=== PATIENT | male | born 1960 | race Caucasian/White ===

== ENCOUNTER → 2020-05-05 13:40 | Outpatient (CLI) | payer OTHER, SELFPAY ==
--- NOTE | 2020-05-05 13:55 | RAD_ITS ---
HISTORY: pt states possible kidney stone, pain off and on ADDITIONAL HISTORY: None. COMPARISON: None Technique: Supine abdominal radiograph(s) Number of images including paperwork: 2 FINDINGS: FREE AIR: None detected. BOWEL GAS PATTERN: Nonobstructive. Moderate to large amount of colonic stool. CALCIFICATIONS: Right lower pole renal calculi are noted measuring approximately 14 mm and 4 mm in greatest dimension. No definite left renal calculi. Calcifications in the pelvis are suggestive of phleboliths although distal ureteral calculus not excluded. ORGANS: No evidence of organomegaly. SOFT TISSUES: Unremarkable. BONES: No acute skeletal findings. RAD/Abdomen Single View IMPRESSION: Right renal calculi. Pelvic calcifications suggestive of phleboliths. Distal ureteral calculus not excluded. at 0037 Reported and signed by: Parvin Ivy MD Electronically Signed: Parvin Ivy MD at 0:37 EDT Tel , Service support ,
== END ==
PROVIDERS: PCP Family Medicine; Referring Provider Urology; Visit Provider Urology
DX: N20.0 Calculus of kidney (principal)
CPT/HCPCS: 74018

== ENCOUNTER 2020-05-18 08:23 | Day surgery (SDC) | payer OTHER, SELFPAY ==
[2020-05-18] VITALS (8 sets, daily range): BP systolic 112–142; BP diastolic 67–79; PULSE 46–91; RESP 15–18; TEMP 36.1–36.3; O2SAT 97–100; BMI 27.3
--- NOTE | 2020-05-18 08:30 | RAD_ITS ---
STUDY: X-RAY - ABDOMEN/PELVIS REASON FOR EXAM: Male, 60 years old. PRE OP, RIGHT SIDE PAIN TECHNIQUE: Single AP view of the abdomen / pelvis. COMPARISON: Comparison is made with prior study dated May 05, 2020. FINDINGS: Normal visualized lung bases. There is a moderate amount of colonic fecal material. There is an 8 mm x 11.5 mm calculus in the region of the right ureteral pelvic junction. 2 mm calculus in the midpole calyx of the right kidney Normal soft tissue structures. Normal visualized osseous structures. RAD/Abdomen Single View IMPRESSION: 11.5 mm x 8 mm calculus at the right ureteropelvic junction. 2 mm calculus in the midpole calyx of the right kidney. Electronically Signed: Jamin Roberson, at 9:46 EDT , Service support ,
[2020-05-18 09:21] LABS: Bedside Glucose 200 mg/dL (70-110)
[2020-05-18] MEDS: Lactated Ringers 1,000 ML 100 ML IV ×2 (09:22→13:45)
[2020-05-18] MEDS: Ciprofloxacin 400 MG/200 ML BAG 200 MG IV (11:19)
--- NOTE | 2020-05-18 14:07 | PCM.HP.STD ---
History of Present Illness Date of Admission: 05/18/20 Chief Complaint: Right ureteral calculi The patient is a 60 year old male with a right proximal ureteral stone, plan to proceed with right shockwave lithotripsy and stent placement Past Medical History Allergies cephalexin Allergy (Verified 05/18/20 09:11) Hives Penicillins Allergy (Verified 05/18/20 09:11) Hives Home Medications: Ambulatory Orders Medication Instructions Recorded Betaxolol 0.25% [Betoptic] 1 drp EACH EYE BID 05/17/20 Cholecalciferol (VIT D3) [Vitamin 1,000 unit PO DAILY 05/17/20 D] Wilma 500 mg PO DAILY 05/17/20 Ginseng 500 mg PO DAILY 05/17/20 Insulin Detemir [Levemir (BKC)] 10 units SUBCUT DAILY 05/17/20 Insulin Detemir [Levemir (BKC)] 14 units SUBCUT QHS 05/17/20 Insulin Lispro [Humalog Kwikpen] 5 - 10 unit SQ TID 05/17/20 Magnesium 250 mg PO DAILY 05/17/20 metFORMIN HCl [Glucophage] 1,000 mg PO BIDCM 05/17/20 Surgical History: no surgical history Smoking Status: Never smoker Tobacco Use: Non-smoker Review of Systems Constitutional: Denies: Chills, Fever, Weight Change HEENT: Denies: Head Aches, Sinus Congestion, Sinus Drainage Cardiovascular: Denies: Chest Pain, Palpitations Respiratory: Denies: Cough, Shortness of breath at rest, Sputum production Gastrointestinal: Denies: Abdominal Pain, Nausea, Vomiting Genitourinary: Denies: Dysuria Musculoskeletal: Denies: Joint Pain, Joint Tenderness Skin: Denies: Rash, Wounds Neurological: Denies: Numbness, Tingling, Focal weakness Psychiatric: Denies: Anxiety, Depression, Homicidal Ideations, Suicidal Ideations Hematologic/ Lymphatic: Denies: Easy Bruising, Easy Bleeding VTE Information - Inpt Only VTE Present on Admission: No - Physical Exam Vitals/I&O's: Vital Signs Temp Pulse Resp BP Pulse Ox 97.4 F L 87 15 142/79 H 99 05/18/20 09:12 05/18/20 09:12 05/18/20 09:12 05/18/20 09:12 05/18/20 09:12 Oxygen Delivery Method Room Air Weight: 87.8 kg Body Mass Index (BMI) 27.3 Intake and Output for Last 24 Hours 05/16/20 05/17/20 05/18/20 23:59 23:59 23:59 Intake Total 200 / 200 Balance 200 / 200 General: Alert, Oriented x3, Cooperative HEENT: Atraumatic, PERRLA, EOMI, Normocephalic Neck: Supple, No JVD, Negative Carotid Bruits Lungs: Clear to auscultation, Normal air movement Cardiovascular: Regular rate, No murmurs Abdomen: Bowel Sounds Present, Soft, Non Tender Extremities: No edema, Capillary Refill Less than 3 Seconds Skin: No rashes, No breakdown Musculoskeletal: No Tenderness to Palpation of Joints or Extremities Neurological: Cranial nerves II-XII grossly intact Psych/Mental Status: Normal Affect, Appropriate Laboratory Results 05/18/20 08:55: COVID-19 ([facility]) Negative 05/18/20 09:15: POC Glucose 200 H Current Medications Lactated Ringer's () 1,000 mls @ 100 mls/hr IV .Q10H KARINA Last Admin: 05/18/20 09:22 Dose: 100 mls/hr Documented by: Assessment/Plan 60-year-old male with proximal right ureteral stone plan for right stent placement and shockwave lithotripsy
--- NOTE | 2020-05-18 14:09 | DCINST_ITS ---
Discharge Diet: No Restrictions, Light diet - advance as tolerated Discharge Activity: Return to Normal Activity, May Not Drive - for 2 days. Additional Activity Instructions:: Please be aware that pain medications may cause nausea. You should typically eat light foods as you take your pain medication. Pain medication may cause constipation, if this is a problem for you, please discuss with your doctor. Suture Line Care: Avoid Pulling/Pushing, Avoid Pinching/Bending Allergies/Adverse Reactions: Allergies cephalexin Allergy (Verified 05/18/20 09:11) Hives Penicillins Allergy (Verified 05/18/20 09:11) Hives Medications to take at Discharge Betaxolol 0.25% [Betoptic] 1 drp EACH EYE BID 05/17/20 Cholecalciferol (VIT D3) [Vitamin D] 1,000 unit PO DAILY 05/17/20 Wilma 500 mg PO DAILY 05/17/20 Ginseng 500 mg PO DAILY 05/17/20 Insulin Detemir [Levemir (BKC)] 10 units SUBCUT DAILY 05/17/20 Insulin Detemir [Levemir (BKC)] 14 units SUBCUT QHS 05/17/20 Insulin Lispro [Humalog Kwikpen] 5 - 10 unit SQ TID 05/17/20 Magnesium 250 mg PO DAILY 05/17/20 metFORMIN HCl [Glucophage] 1,000 mg PO BIDCM 05/17/20 Acetaminophen [Tylenol Extra Strength] 500 mg PO Q4H PRN PRN #20 tab 05/18/20 Ibuprofen 600 mg PO Q4H PRN PRN #20 tab 05/18/20 The following prescriptions were given: Ibuprofen 600 mg PO Q4H PRN PRN #20 tab PRN Reason: Pain Score 1-10/10 Transmission Status: Pending to [facility] Acetaminophen [Tylenol Extra Strength] 500 mg PO Q4H PRN PRN #20 tab PRN Reason: Pain Score 1-10/10 Transmission Status: Pending to [facility] Primary Care Physician: Zach London MD [Primary Care Provider] - Test Results: Test results from this visit will be discussed in further detail at your follow- up appointment, if applicable. Please Follow Up With: Zenon Alva MD When: in 2 weeks, please call to make an appointment.
--- NOTE | 2020-05-18 14:10 | PCM.OPRPT ---
Report of Operation Date of Procedure: 05/18/20 Pre-Operative Diagnosis: Right proximal ureteral calculi Post-Operative Diagnosis: Same Surgery/Procedure Performed:: Cystoscopy right stent placement, right extracorporeal shockwave lithotripsy Description of Surgical Findings:: 60-year-old male was taken back to the operating room he has an obstructing stone in the right proximal ureter, taken back to the operating room underwent general anesthesia. He was placed in dorsolithotomy position. The penis and testicles were prepped and draped in usual sterile fashion. Went to the bladder with a 21 [place] rigid cystourethroscope identified the right ureteral orifice. Advanced a wire up into the right kidney past the stone. I then put a stent over the wire once the stent was in good position pulled the wire the stent: The kidney bladder good position. Left the string on the stent but cut it short to prevent extraction. We then repositioned the patient on the lithotripter table we found the stone in the F2 focal point of the machine proceeded with shockwave lithotripsy with a total of 3000 shocks were delivered to the stone at a rate of 90/min between 5 to 7 kV at the end of the treatment cycle the stone it broken up really well. He will need another x-ray before we get stent out make sure he does not need any further treatments always possible he needs more than one treatment but appear to be a successful treatment. His anesthesia was reversed he was taken back to PACU good condition we will see him back in a week with a KUB. Type of Anesthesia:: General Drains: stent right side - Admit VTE Documentation VTE Present on Admission: No VTE Mechan Device Prophylaxis: SCD's
[2020-05-18 14:41] LABS: Bedside Glucose 231 mg/dL (70-110)
[2020-05-18] MEDS: Ketorolac 30 MG/ML Syringe IV (15:02)
[2020-05-18] MEDS: Acetaminophen 325 MG Tablet 650 MG PO (16:06)
== END 2020-05-18 16:58 | disposition home or self-care (01) ==
LOC: SDC 08:27 → AC 09:15
PROVIDERS: Anesthesiology; PCP Family Medicine; Referring Provider Urology; Visit Provider Urology
PROC: (CPT 50590; principal; 2020-05-18 12:25)
DX: N20.1 Calculus of ureter (principal); E11.9 Type 2 diabetes mellitus without complications; Z79.4 Long term (current) use of insulin; Z88.0 Allergy status to penicillin; Z86.19 Personal history of other infectious and parasitic diseases
CPT/HCPCS: 00873; 50590; 52332; 74018; 82962; 87635; G2023; J7120; C1769; C2617; J0744; J2405; U0003

== ENCOUNTER → 2020-05-26 13:00 | Outpatient (CLI) | payer OTHER, SELFPAY ==
[2020-05-18 09:12] VITALS: BMI 27.3
--- NOTE | 2020-05-26 13:15 | RAD_ITS ---
STUDY: X-RAY - ABDOMEN/PELVIS REASON FOR EXAM: Male, 60 years old. F/U FOR KIDNEY STONE. STENT PLACEMENT 8 DAYS AGO TECHNIQUE: Two AP supine views of the abdomen and pelvis. COMPARISON: 05/18/2020 FINDINGS: Since the previous study, patient has undergone placement of a right-sided JJ stent. The previously noted calcifications overlying the lower pole the right kidney are no longer identified. No calcifications noted along the stent. There is an abundance of fecal material throughout the colon. There is no demonstrated free abdominal air. The visualized liver, spleen and kidneys are grossly normal in size and morphology. Normal soft tissue structures. Normal visualized osseous structures. RAD/Abdomen Single View IMPRESSION: JJ stent has been placed since the previous study, stent in satisfactory position Previous noted calcifications overlying the mid and lower pole of the right kidney no longer identified No calcifications along the course of the stent. Retained stool throughout the colon Electronically Signed: Patrick Paulson MD at 13:33 EDT , Service support ,
== END ==
PROVIDERS: PCP Family Medicine; Referring Provider Urology; Visit Provider Urology
DX: N20.0 Calculus of kidney (principal)
CPT/HCPCS: 74018

== ENCOUNTER → 2021-03-27 15:01 | Outpatient (CLI) | payer OTHER, SELFPAY ==
[2020-05-18 09:12] VITALS: BMI 27.3
--- NOTE | 2021-03-27 15:03 | RAD_ITS ---
STUDY: X-RAY - ABDOMEN/PELVIS REASON FOR EXAM: Male, 61 years old. ABD PAIN TECHNIQUE: Two AP supine views of the abdomen and pelvis. COMPARISON: May 26, 2020 abdomen series FINDINGS: Lung bases are out of the [id number]. There is moderate stool in the colon from the cecum to the rectum. The visualized liver, kidneys are grossly normal in size and morphology. The spleen is out of the [id number]. The liver is partially out of the field of view. There are calcified phleboliths in the pelvis. There are diffuse degenerative changes of the visualized lumbar spine. RAD/Abdomen Single View IMPRESSION: Moderate constipation. Electronically Signed: Marie Kaufman MD at 8:05 EDT Tel , Service support ,
== END ==
PROVIDERS: PCP Family Medicine; Referring Provider Nurse Practitioner Adult Health; Visit Provider Nurse Practitioner Adult Health
DX: R10.9 Unspecified abdominal pain (principal); N20.0 Calculus of kidney
CPT/HCPCS: 74018

== ENCOUNTER → 2023-03-04 | Outpatient (CLI) | payer BC, SELFPAY ==
--- NOTE | 2023-03-04 13:52 | CT_ITS ---
STUDY: CT ABDOMEN AND PELVIS WITHOUT CONTRAST REASON FOR EXAM: Male, 63 years old. CALCULUS OF KIDNEY RADIATION DOSAGE (If Supplied By Facility): CTDIvol = ( 6.00 ) mGy, DLP = ( 305.46 ) mGycm TECHNIQUE: Transaxial images were obtained from the dome of the diaphragm to the symphysis pubis without oral contrast, and without intravenous contrast. Sagittal and coronal images were reconstructed. Individualized dose optimization techniques were used for this CT. COMPARISON: None. FINDINGS: The visualized lung bases are unremarkable. The visualized portions of the heart are within normal limits. Normal liver. Normal gallbladder and extrahepatic biliary system. Normal spleen. Normal pancreas. Normal bilateral adrenal glands. Normal right kidney. Tiny nonobstructive calculus in the midpole calyx of the left kidney. Questionable tiny calculus in the distal portion of the left ureter just proximal to the ureterovesical junction. Normal visualized stomach. Normal small intestine. Normal colon. The appendix is visualized and appears normal. There is scattered atherosclerotic calcification of the abdominal aorta, without a demonstrated aneurysm. Normal inferior vena cava. Normal retroperitoneum. Normal urinary bladder. Prostatic enlargement with indentation at the bladder base. Normal abdominal wall. Normal osseous structures. CT/Abdomen/Pelvis without Cont IMPRESSION: Questionable tiny calculus in the distal portion of left ureter just proximal to the ureterovesical junction. Electronically Signed: Jamin Roberson MD at 14:52 EDT ,
== END | disposition home or self-care (01) ==
LOC: CT 13:43
PROVIDERS: PCP Family Medicine; Referring Provider Urology; Visit Provider Urology
DX: N20.0 Calculus of kidney (principal)
CPT/HCPCS: 74176

== ENCOUNTER → 2023-04-18 | Outpatient (CLI) | payer BC, SELFPAY ==
--- NOTE | 2023-04-18 09:06 | RAD_ITS ---
STUDY: X-RAY - ABDOMEN/PELVIS REASON FOR EXAM: Male, 63 years old. Kidney stone. TECHNIQUE: Single AP view of the abdomen / pelvis. COMPARISON: CT of the abdomen and pelvis, March 04, 2023. FINDINGS: The lung bases are not included. There is an unremarkable bowel gas pattern. There is no demonstrated free abdominal air. The visualized liver, spleen and kidneys are grossly normal in size and morphology. No visualized renal or ureteral calcifications. Table phleboliths. Normal visualized osseous structures. RAD/Abdomen Single View IMPRESSION: Normal x-ray examination of the abdomen and pelvis. Electronically Signed: Dewey Stokes DO at 17:16 EDT ,
== END | disposition home or self-care (01) ==
LOC: RAD 09:05
PROVIDERS: PCP Family Medicine; Referring Provider Urology; Visit Provider Urology
DX: N20.0 Calculus of kidney (principal)
CPT/HCPCS: 74018

== ENCOUNTER → 2025-01-14 | Outpatient (CLI) | payer BC, SELFPAY ==
--- NOTE | 2025-01-14 11:35 | CT_ITS ---
EXAM: CT Abdomen and Pelvis Without Intravenous Contrast CLINICAL INDICATION: PERSONAL HX URINARY CALCULI TECHNIQUE: Axial computed tomography images of the abdomen and pelvis without intravenous contrast. This CT exam was performed using one or more of the following dose reduction techniques: automated exposure control, adjustment of the mA and/or kV according to patient size, and/or use of iterative reconstruction technique. COMPARISON: CT Abdomen Pelvis dated 03/04/2023 FINDINGS: LUNG BASES: Unremarkable. No mass. No consolidation. ABDOMEN: LIVER: Hepatomegaly with fatty infiltration. GALLBLADDER AND BILE DUCTS: Unremarkable. No calcified stones. No ductal dilation. PANCREAS: Unremarkable. No ductal dilation. SPLEEN: Unremarkable. No splenomegaly. ADRENALS: Unremarkable. No mass. KIDNEYS AND URETERS: 2 mm right renal pelvic calculus without obstruction. STOMACH AND BOWEL: Fecal retention in the colon consistent with constipation. No obstruction. No mucosal thickening. PELVIS: APPENDIX: No findings to suggest acute appendicitis. BLADDER: Bladder wall thickening which may be due to the decompressed state of the bladder or due to cystitis. No stones. REPRODUCTIVE: The prostate gland is enlarged measuring 5.0 cm in maximum dimension. ABDOMEN and PELVIS: INTRAPERITONEAL SPACE: Unremarkable. No free air. No significant fluid collection. BONES/JOINTS: No acute fracture. No dislocation. SOFT TISSUES: Umbilical hernia containing fat. VASCULATURE: Scattered calcified atherosclerotic disease of aorta. No abdominal aortic aneurysm. LYMPH NODES: Unremarkable. No enlarged lymph nodes. CT/Abdomen/Pelvis without Cont IMPRESSION: 1. Bladder wall thickening which may be due to the decompressed state of the b ladder or due to cystitis. 2. The prostate gland is enlarged. Correlation with PSA values may be helpful if not previously performed. 3. Hepatomegaly with fatty infiltration. 4. Fecal retention in the colon consistent with constipation. 5. 2 mm right renal pelvic calculus without obstruction. 6. Umbilical hernia containing fat. Reading Location[facility]
== END | disposition home or self-care (01) ==
LOC: CT 11:32
PROVIDERS: PCP Family Medicine; Referring Provider Urology; Visit Provider Urology
DX: Z87.442 Personal history of urinary calculi (principal)
CPT/HCPCS: 74176

== ENCOUNTER → 2025-01-14 | Outpatient (CLI) | payer BC, SELFPAY ==
--- NOTE | 2025-01-14 10:40 | RAD_ITS ---
EXAM: XR Abdomen, 1 View CLINICAL INDICATION: CALCULUS OF KIDNEY TECHNIQUE: Frontal supine view of the abdomen/pelvis. COMPARISON: No relevant prior studies available. FINDINGS: GASTROINTESTINAL TRACT: Unremarkable. No dilation. ORGANS: Stool burden limited evaluation for renal calculi. Probable 4 mm calculus of the right kidney. BONES/JOINTS: Unremarkable. No acute fracture. RAD/Abdomen Single View IMPRESSION: Stool burden limited evaluation for renal calculi. Probable 4 mm calculus of t he right kidney. Reading Location[facility]
== END | disposition home or self-care (01) ==
LOC: RAD 10:34
PROVIDERS: PCP Family Medicine; Referring Provider Nurse Practitioner; Visit Provider Nurse Practitioner
DX: N20.0 Calculus of kidney (principal)
CPT/HCPCS: 74018